=== PATIENT | female | born 1965 | race Caucasian/White ===

== ENCOUNTER 2020-11-17 01:25 | Inpatient (IN) | payer BC ==
[2020-11-17] VITALS (20 sets, daily range): BP systolic 92–126; BP diastolic 46–81
[~2020-11-17] VITALS: Ht 170.2 cm; Wt 126.4 kg
[2020-11-17] MEDS ORDERED: ASA81BEC PO (01:44)
[2020-11-17] MEDS ORDERED: NORVASC10 MG PO (01:44)
[2020-11-17] MEDS ORDERED: LIPITOR 20 MG T20 M1 PO (01:45)
[2020-11-17] MEDS ORDERED: BISACODYL10 MG RECTAL (01:45)
[2020-11-17] MEDS ORDERED: DULCOLAX STOOL100 M1 PO (01:46)
[2020-11-17] MEDS ORDERED: DRIZALMA SPRINK20 MG PO (01:46)
[2020-11-17] MEDS ORDERED: ELIQUIS5 MG PO (01:47)
[2020-11-17] MEDS ORDERED: FLEET ENEMA133 ML RECTAL (01:47)
[2020-11-17] MEDS ORDERED: SLOW FE142 MG PO (01:48)
[2020-11-17] MEDS ORDERED: FUROSEMIDE 40 M40 MG PO (01:48)
[2020-11-17] MEDS ORDERED: KRISTALOSE20 GM PO (01:49)
[2020-11-17] MEDS ORDERED: NEURONTIN 300M300 M2 PO (01:49)
[2020-11-17] MEDS ORDERED: MECLIZINE HCL25 M1 PO ×2 (01:50→01:51)
[2020-11-17] MEDS ORDERED: LEVO-T100 MCG PO (01:50)
[2020-11-17] MEDS ORDERED: MELATONIN10 M3 PO (01:51)
[2020-11-17] MEDS ORDERED: MS CONTIN15 MG PO (01:52)
[2020-11-17] MEDS ORDERED: ROBAXIN 750 MG750 MG PO (01:52)
[2020-11-17] MEDS ORDERED: PERCOCET 5-3251 EACH PO (01:53)
[2020-11-17] MEDS ORDERED: KLOR-CON M2020 MEQ PO (01:53)
[2020-11-17] MEDS ORDERED: REGLAN 5 MG TAB5 MG PO (01:54)
[2020-11-17] MEDS ORDERED: PROTONIX40 M3 PO (01:54)
[2020-11-17] MEDS ORDERED: SENNA PLUS TAB1 EACH PO (01:55)
[2020-11-17] MEDS ORDERED: VENLAFAXINE HC150 M1 PO (01:56)
[2020-11-17] MEDS ORDERED: SPIRONOLACTONE25 MG PO (01:56)
[2020-11-17] MEDS ORDERED: VENTOLIN HFA 1818 GM INH (01:57)
[2020-11-17] MEDS ORDERED: TUMS ULTRA STR470 MG PO (01:57)
[2020-11-17] MEDS ORDERED: ZOFRAN4 MG PO (01:58)
[2020-11-17 03:12] LABS: CALCIUM 9.3 mg/dL (8.5-10.1); CREATININE 1.6 mg/dL (0.6-1.3); POTASSIUM 3.3 mmol/L (3.5-5.1)
[2020-11-17 03:16] LABS: ALBUMIN 3.3 g/dL (3.4-5.0); TOTAL BILIRUBIN 0.9 mg/dL (<0.1-1.0); TOTAL PROTEIN 7.4 g/dL (6.4-8.2)
[2020-11-17 03:32] LABS: HEMATOCRIT 35.8 % (37.0-47.0); HEMOGLOBIN 11.5 gm/dL (12.0-15.0); MCH 25.1 pg (26.0-34.0); MCHC 32.2 g/dL (28.0-37.0); MPV 7.9 fl. (7.2-11.1); NUCLEATED RBCS 0 /100WBC; PLATELET COUNT* 381 thou/uL (150-400); RBC 4.58 mil/uL (4.20-5.00); RDW-CV 18.2 % (10.5-14.5)
[2020-11-17 04:00] LABS: URINE BILIRUBIN NEGATIVE (Negative); URINE BLOOD 3+ (Negative); URINE COLOR YELLOW; URINE GLUCOSE-RANDOM NEGATIVE (Negative); URINE KETONES NEGATIVE (Negative); URINE NITRITE-REFLEX NEGATIVE (Negative); URINE PROTEIN 2+ (Negative); URINE UROBILINOGEN 0.2 E.U./dl (0.2-1.0)
[2020-11-17 04:01] LABS: URINE CLARITY SL CLOUDY; URINE LEUKOCYTES-REFLEX 2+ (Negative)
[2020-11-17 04:37] LABS: BACTERIA-REFLEX >30 Many /HPF (None Seen); COARSE GRANULAR CASTS 0-3 Few /LPF (None Seen); FINE GRANULAR CASTS 0-3 Few /LPF (None Seen); MUCUS 4-6 Moderate strn/LPF (None Seen); SQUAMOUS 0-3 Few /LPF (0-3); URINE WBC-REFLEX >25 Many /HPF (0-5); WBC CLUMPS Few (None Seen)
[2020-11-17 04:38] LABS: AMORPHOUS URATES Moderate /LPF (None Seen)
[2020-11-17 04:40] LABS: APTT 28.2 Seconds (25.0-31.3); INR 1.1; PROTIME 12.1 Seconds (9.20-11.50)
[2020-11-17 05:46] LABS: ABSOLUTE LYMPHOCYTES 1.4 thou/uL (0.8-5.3); ABSOLUTE MONOCYTES 0.5 thou/uL (0.0-1.2); ABSOLUTE NEUTROPHILS 11.1 thou/uL (1.6-8.1); ANISOCYTOSIS 1+; CLUMPED PLTS FEW; PLATELET ESTIMATE ADEQUATE; TOXIC GRANULATION 1+
[2020-11-17 10:20] LABS: CALCIUM 8.2 mg/dL (8.5-10.1); CREATININE 1.3 mg/dL (0.6-1.3); POTASSIUM 3.5 mmol/L (3.5-5.1)
--- NOTE | 2020-11-17 12:42 | EKG ---
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 : 1965 Requested By: Phoebe Dale Order Number: [id number] MD: Raimundo Sanchez Measurements Intervals [place] Rate: 106 P: 45 [place]: 42 QRS: -5 QRSD: 97 T: 150 QT: 314 QTc: 417 Interpretive Statements Sinus tachycardia Low voltage, precordial leads Abnormal R-wave progression, early transition Nonspecific repol abnormality, lateral leads No previous ECG available for comparison Electronically Signed On 11-17-2020 12:42:05 [employer]GER by Raimundo Sanchez [email or web address] <ELECTRONICALLY SIGNED> By: Raimundo Sanchez MD, [facility] 11/17/20 1242 1 1 Raimundo Sanchez MD, [facility] /EPI
[2020-11-18] VITALS (13 sets, daily range): BP systolic 99–127; BP diastolic 60–82
[2020-11-18 05:11] LABS: HEMATOCRIT 30.3 % (37.0-47.0); HEMOGLOBIN 10.1 gm/dL (12.0-15.0); MCH 25.9 pg (26.0-34.0); MCHC 33.1 g/dL (28.0-37.0); MCV 78.3 fL (80.0-100.0); MPV 7.3 fl. (7.2-11.1); RBC 3.88 mil/uL (4.20-5.00); RDW-CV 18.1 % (10.5-14.5); WBC 4.5 thou/uL (4.0-11.0)
[2020-11-18 05:26] LABS: ALBUMIN 2.4 g/dL (3.4-5.0); CALCIUM 8.4 mg/dL (8.5-10.1); CREATININE 1.3 mg/dL (0.6-1.3); MAGNESIUM 1.6 mg/dL (1.8-2.4); TOTAL BILIRUBIN 0.7 mg/dL (<0.1-1.0); TOTAL PROTEIN 6.1 g/dL (6.4-8.2)
[2020-11-18 05:27] LABS: POTASSIUM 2.6 mmol/L (3.5-5.1)
[2020-11-19] VITALS: BP 142/92
[2020-11-19 04:53] VITALS: BP 150/95
[2020-11-19 05:17] LABS: HEMATOCRIT 29.9 % (37.0-47.0); HEMOGLOBIN 9.9 gm/dL (12.0-15.0); MCH 26.2 pg (26.0-34.0); MCHC 33.2 g/dL (28.0-37.0); MCV 78.8 fL (80.0-100.0); MPV 7.9 fl. (7.2-11.1); RBC 3.79 mil/uL (4.20-5.00); RDW-CV 18.3 % (10.5-14.5); WBC 5.4 thou/uL (4.0-11.0)
[2020-11-19 05:33] LABS: ALBUMIN 2.3 g/dL (3.4-5.0); CALCIUM 8.5 mg/dL (8.5-10.1); CREATININE 1.3 mg/dL (0.6-1.3); MAGNESIUM 1.7 mg/dL (1.8-2.4); POTASSIUM 3.7 mmol/L (3.5-5.1); TOTAL BILIRUBIN 0.5 mg/dL (<0.1-1.0); TOTAL PROTEIN 5.9 g/dL (6.4-8.2)
[2020-11-19 08:00] VITALS: BP 132/75
[2020-11-19 12:00] VITALS: BP 128/85
[2020-11-19 16:38] VITALS: BP 112/76
[2020-11-19 23:41] VITALS: BP 123/79
[2020-11-20 04:13] VITALS: BP 119/72
[2020-11-20 04:35] LABS: HEMATOCRIT 29.7 % (37.0-47.0); HEMOGLOBIN 9.8 gm/dL (12.0-15.0); MCH 26.2 pg (26.0-34.0); MCV 79.4 fL (80.0-100.0); MPV 7.5 fl. (7.2-11.1); RBC 3.75 mil/uL (4.20-5.00); RDW-CV 18.2 % (10.5-14.5); WBC 5.4 thou/uL (4.0-11.0)
[2020-11-20 04:58] LABS: ALBUMIN 2.2 g/dL (3.4-5.0); CALCIUM 8.1 mg/dL (8.5-10.1); CREATININE 1.1 mg/dL (0.6-1.3); MAGNESIUM 1.7 mg/dL (1.8-2.4); POTASSIUM 3.1 mmol/L (3.5-5.1); TOTAL BILIRUBIN 0.5 mg/dL (<0.1-1.0); TOTAL PROTEIN 5.7 g/dL (6.4-8.2)
[2020-11-20 08:00] VITALS: BP 132/80
[2020-11-20] MEDS ORDERED: PERCOCET 5-3251 EACH PO (09:27)
[2020-11-20] MEDS ORDERED: CIPROFLOXACIN500 M1 PO (09:27)
[2020-11-20] MEDS ORDERED: NEURONTIN 300M300 M2 PO (09:27)
[2020-11-20] MEDS ORDERED: MS CONTIN15 MG PO (09:27)
[2020-11-20 12:00] VITALS: BP 155/96
== END 2020-11-20 13:30 | DRG 872 ==
LOC: M.ERS 01:25 → M.TBA-ER 04:36 → M.ICU 04:36 → M.2W 07:45 → M.ICU 07:59 → M.2W 11-18 12:30
PROVIDERS: Internal Medicine; Personal Emergency Response Attendant; ADMIT Internal Medicine; ATTEND Internal Medicine
PROC: 02HV33Z Insertion of Infusion Device into Superior Vena Cava, Percutaneous Approach (ICD-10-PCS; principal; 2020-11-17)
DX: A41.9 Sepsis, unspecified organism (principal); N39.0 Urinary tract infection, site not specified; I69.354 Hemiplegia and hemiparesis following cerebral infarction affecting left non-dominant side; Z68.41 Body mass index [BMI] 40.0-44.9, adult; N17.9 Acute kidney failure, unspecified; I25.10 Atherosclerotic heart disease of native coronary artery without angina pectoris; E03.9 Hypothyroidism, unspecified; G47.33 Obstructive sleep apnea (adult) (pediatric); E78.5 Hyperlipidemia, unspecified; F41.9 Anxiety disorder, unspecified; F32.9 Major depressive disorder, single episode, unspecified; I12.9 Hypertensive chronic kidney disease with stage 1 through stage 4 chronic kidney disease, or unspecified chronic kidney disease; E66.01 Morbid (severe) obesity due to excess calories; N18.2 Chronic kidney disease, stage 2 (mild); Z20.822 Contact with and (suspected) exposure to COVID-19; Z98.891 History of uterine scar from previous surgery; I25.2 Old myocardial infarction; Z90.710 Acquired absence of both cervix and uterus; Z86.718 Personal history of other venous thrombosis and embolism; Z79.82 Long term (current) use of aspirin; Z79.899 Other long term (current) drug therapy; Z88.5 Allergy status to narcotic agent